=== PATIENT | male | born 1980 | race Two or more races ===

== ENCOUNTER 2019-02-13 22:53 | Emergency (ER) | payer OTHER ==
[~2019-02-13] VITALS: Ht 175.3 cm; Wt 76.7 kg
--- NOTE | 2019-02-13 23:00 | NUR ---
ED Nurse Note: Pt walked in c/o right ankle pain since this afternoon, pt states he was running to catch a bus and stepped in a hole and thinks he sprained his ankle. pt ambulates w/ steady gait, cms intact, will cont monitor. ice pack given to decrease pain.
--- NOTE | 2019-02-13 23:33 | Diagnostic Imaging Report ---
EXAM: XR Right Ankle Complete, 3 or More Views CLINICAL HISTORY: TRAUMA TECHNIQUE: Frontal, lateral and oblique views of the right ankle. COMPARISON: No relevant prior studies available. FINDINGS: Bones/joints: No acute fracture. Soft tissues: No radiodense foreign body. Soft tissue swelling IMPRESSION: No acute fracture.
[2019-02-13] MEDS ORDERED: IBUPROFEN600 MG ORAL (23:43)
--- NOTE | 2019-02-13 23:52 | Emergency Room Report ---
History of Present Illness General Chief Complaint: Lower Extremity Injury Source: Patient Present Illness HPI Patient presents with complaints of discomfort to his right ankle reports that earlier today he stepped into a pothole twisting his ankle Now he is having more pain with bearing weight he took some Advil With minimal relief denies any knee pain denies any pelvic pain denies any other fall or trauma Denies any head injury Allergies: Coded Allergies: No Known Allergies (Unverified , 02/13/19) Patient History Past Medical History: see triage record Pertinent Family History: none Reviewed Nursing Documentation: PMH: Agreed; PSxH: Agreed Nursing Documentation-PMH Past Medical History: No Stated History Review of Systems All Other Systems: negative except mentioned in HPI Physical Exam Vital Signs Date Time Temp Pulse Resp B/P (MAP) Pulse Ox O2 Delivery O2 Flow Rate FiO2 02/13/19 22:56 98.2 70 18 119/75 (90) 96 Room Air Sp02 EP Interpretation: reviewed, normal General Appearance: well appearing, no apparent distress Head: normocephalic, atraumatic Eyes: bilateral eye PERRL, bilateral eye EOMI ENT: hearing grossly normal, normal pharynx, TMs + canals normal, uvula midline Neck: full range of motion, supple, no meningismus, no bony tend Respiratory: lungs clear, normal breath sounds, no rhonchi, no respiratory distress, no retraction, no accessory muscle use Cardiovascular #1: normal peripheral pulses, regular rate, rhythm, no edema, no gallop, no JVD, no murmur Gastrointestinal: normal bowel sounds, non tender, soft, no mass, no organomegaly, non-distended, no guarding, no hernia, no pulsatile mass, no rebound Genitourinary: no CVA tenderness Musculoskeletal: swelling - And discomfort to the right lateral ankle Neurologic: oriented x3, responsive, com writer III-XII nml as tested, motor strength/ tone normal, sensory intact Psychiatric: mood/affect normal Skin: normal color, no rash, warm/dry, palpation normal Lymphatic: normal inspection, no adenopathy Procedures Splinting Splinting : Consent: Verbal Location: Right ankle Pre-Made Type: velcro Splint: sugar-tong Pre-Proc Neuro Vasc Exam: normal Post-Proc Neuro Vasc Exam: normal Patient Tolerated: Well Complications: None Medical Decision Making Diagnostic Impression: Primary Impression: ankle sprain ER Course Given the patient's history and exam x-ray imaging is obtained No obvious acute fracture is seen however given the patient's discomfort with bearing weight and the swelling splint was applied and patient will have close outpatient follow-up Other X-Ray Diagnostic Results Other X-Ray Diagnostic Results : X-Ray ordered: Right ankle # of Views/Limited Vs Complete: 3 View Indication: Pain EP Interpretation: Yes Interpretation: no dislocation, no fractures, other - Soft tissue swelling Impression: Other - Soft tissue swelling Electronically Signed by: Surjit Paez DO Last Vital Signs Date Time Temp Pulse Resp B/P (MAP) Pulse Ox O2 Delivery O2 Flow Rate FiO2 02/13/19 22:56 98.2 70 18 119/75 (90) 96 Room Air Status: improved Disposition: HOME, SELF-CARE Condition: Improved Scripts Ibuprofen* (MOTRIN*) 600 Mg Tablet 600 MG ORAL Q8H PRN for For Pain, #20 TAB 0 Refills Prov: Surjit Paez DO 02/13/19 Referrals: [facility] Departure Forms: Return to Work Return to Work in (Days): 2 Return to Work Date: Feb 15, 2019 Patient Instructions: Ankle Sprain Additional Instructions: Patient is provided with the discharge instructions notified to follow up with primary doctor in the next 2-3 days otherwise return to the er with any worsening symptoms. Please note that this report is being documented using [employer] technology. This can lead to erroneous entry secondary to incorrect interpretation by the dictating instrument. Surjit Paez DO Feb 13, 2019 23:52
[2019-02-13 23:53] VITALS: BP 119/75
--- NOTE | 2019-02-13 23:53 | NUR ---
ED Nurse Note: Patient cleared for discharge by MELLISSA, patient is A&Ox4, ambulatory with cane. ID band removed. patient verbalized understanding discharge instructions and follow-up recommendations. Patient departed with all belongings.
== END 2019-02-14 03:04 | disposition home or self-care (01) ==
LOC: EMR 23:10
DX: S93.401A Sprain of unspecified ligament of right ankle, initial encounter (principal); X50.1XXA Overexertion from prolonged static or awkward postures, initial encounter; Y92.488 Other paved roadways as the place of occurrence of the external cause
CPT/HCPCS: 29515; 99283